=== PATIENT | male | born 1990 | race Caucasian/White ===

== ENCOUNTER 2022-03-23 15:30 | Emergency (ER) | payer MEDICARE, MEDICAID ==
[~2022-03-23] VITALS: Ht 180.3 cm; Wt 119.5 kg
[2022-03-23 15:36] VITALS: BP 130/81
[2022-03-23] MEDS ORDERED: LIDOcaine 1% 30ml preserv. free vial IJ STA (16:56)
[2022-03-23] MEDS ORDERED: sulfamethoxazole/trimethoprim DS (800/160mg) tablet PO ONE (17:00)
== END 2022-03-23 17:48 | disposition left against medical advice (07) ==
LOC: ER 15:31
DX: L60.0 Ingrowing nail (principal); L03.031 Cellulitis of right toe
CPT/HCPCS: 99281; 99282

== ENCOUNTER 2022-11-13 13:55 | Emergency (ER) | payer MEDICARE, MEDICAID ==
[~2022-11-13] VITALS: Ht 180.3 cm; Wt 104.0 kg
[2022-11-13 14:21] LABS: BASOPHILS # (AUTO) 0.1 X10'3 (0-0.2); BASOPHILS % (AUTO) 0.9 % (0-1); EOSINOPHILS # (AUTO) 0.2 X10'3 (0-0.9); EOSINOPHILS % (AUTO) 1.7 % (0-6); HEMATOCRIT 42.7 % (42.0-52.0); HEMOGLOBIN 14.8 g/dl (14.0-17.9); LYMPHOCYTES # (AUTO) 2.8 X10'3 (1.1-4.8); LYMPHOCYTES % (AUTO) 27.5 % (21-51); MEAN CORPUSCULAR HEMOGLOBIN 29.5 PG (27.0-31.0); MEAN CORPUSCULAR HGB CONC 34.8 g/dL (33.0-36.5); MEAN CORPUSCULAR VOLUME 84.7 FL (78-98); MEAN PLATELET VOLUME 8.2 FL (7.4-10.4); MONOCYTES # (AUTO) 0.8 X10'3 (0-0.9); MONOCYTES % (AUTO) 7.9 % (2-12); NEUTROPHILS # (AUTO) 6.2 X10'3 (1.8-7.7); PLATELET COUNT 210 X10'3 (140-440); RED BLOOD COUNT 5.04 X10'6 (4.70-6.10); RED CELL DISTRIBUTION WIDTH 13.6 % (11.5-14.5); WHITE BLOOD COUNT 10.1 X10'3 (4.5-11.0)
[2022-11-13 14:42] LABS: ALANINE AMINOTRANSFERASE 76 U/L (12-78); ALBUMIN 4.3 G/DL (3.4-5.0); ALBUMIN/GLOBULIN RATIO 1.1 (1.1-1.5); ALKALINE PHOSPHATASE 103 IU/L (46-116); ANION GAP 6 (8-16); ASPARTATE AMINO TRANSFERASE 28 U/L (10-37); BILIRUBIN,TOTAL 0.4 MG/DL (0.1-1.0); BLOOD UREA NITROGEN 10 MG/DL (7-18); BUN/CREATININE RATIO 10.2 (5.4-32.0); CALCIUM 9.4 MG/DL (8.5-10.1); CHLORIDE 106 MMOL/L (99-107); CREATININE 0.98 MG/DL (0.60-1.10); GLUCOSE 123 MG/DL (70-104); POTASSIUM 3.6 MMOL/L (3.5-5.1); SODIUM 140 MMOL/L (135-145); TOTAL CARBON DIOXIDE 28.3 MMOL/L (24-32); TOTAL PROTEIN 8.1 G/DL (6.4-8.2); eGFR 88 ML/MIN
[2022-11-13 14:48] LABS: MAGNESIUM 2.2 MG/DL (1.5-2.4)
--- NOTE | 2022-11-13 18:49 | NUR ---
Patient skin signs WNL. Skin is pink, warm, dry. Menation GCS 15. Patient appears in no acute distress.
[2022-11-13 20:43] VITALS: BP 123/70
== END 2022-11-13 20:46 | disposition home or self-care (01) ==
LOC: ER 13:55
DX: R07.9 Chest pain, unspecified (principal); R20.0 Anesthesia of skin
CPT/HCPCS: 36415; 80053; 83735; 83880; 84484; 85025; 93005; 99285

== ENCOUNTER 2025-05-16 11:09 | Emergency (ER) | payer MEDICARE, MEDICAID ==
[~2025-05-16] VITALS: Ht 180.3 cm; Wt 114.7 kg
[2025-05-16 11:13] VITALS: BP 148/88; PULSE 85; RESP 16; TEMP 97.7; O2SAT 98
[2025-05-16] MEDS ORDERED: SULF1TAB45 PO (12:37)
--- NOTE | 2025-05-16 12:39 | Physician Documentation ---
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 He has two small sores in the top of his has not fevers or nausea vomit Tetanus witin 5 years: Yes Medication Reconciliation Allergies: Coded Allergies: No Known Allergies (Unverified , 03/23/22) Past Medical History Past Medical History: No Pertinent History Past Surgical History: orthopedic surgeries Smoking Status: Never smoker Drug Use: none Lives In: Home Review of Systems All Other Systems at this time: Reviewed and Negative ROS As stated above in the HPI, otherwise all systems are reviewed and negative. Physical Exam Vital Signs: Temperature: 97.7, Source: Oral, Heart Rate: 85, Respiratory Rate: 16, BP: 148/88, Pulse Oximetry: 98, Weight: 114.700 Oxygen Flow Rate: 0 Physical Exam General: Alert, no apparent distress. HEENT: PERRL, EOMI, no injection, moist mucous membranes. Extremities: Normal range of motion, no deformity. Notable erythema with two 1 cm ulcerations in the superior aspect of the left, no fluctuance Neurologic: Oriented x4. Psychiatric: Normal mood and affect. Skin: Normal color, warm and dry. No edema, no ecchymosis. Progress Results/Orders Results/Orders Vital Signs 05/16/25 11:13 Temp 97.7 Pulse 85 Resp 16 B/P (MAP) 148/88 Pulse Ox 98 O2 Flow Rate 0 Medical Decision Making Findings Treat this patient for cellulitis via Bactrim for better coverage. See any reas on to pursue any I and D as I could not find any fluctuant mass Foot Diff Dx:Considerations: Include: Abrasion, Arthritis, Cellulitis, Contusion, Dislocation, DJD, Fracture-metatarsal, Fracture-phalynx, Fracture- tarsal, Gout, Hematoma, Ingrown toenail, Laceration, Malunion, Neurovascular injury, Open fracture, Paronychia, Puncture, Rheumatoid, Sprain, Septic, Subungual hematoma, Ulcer, Other Departure Disposition: 01 HOME / SELF CARE / HOMELESS Impression: Primary Impression: Cellulitis Condition: Stable Discharge Instructions: Cellulitis Referrals: NO PRIMARY CARE PROVIDER (PCP) Prescriptions Sulfamethoxazole/Trimethoprim (Septra Ds Tab) 800 Mg/160 Mg Tablet 1 TAB PO Q12H for 10 Days, #20 TAB Prov: LOGAN MORAN LAUNCH CHECK OUT 05/16/25 Signature Scribe Signature: g Attestation: Scribed for Logan Moran Director Risk by Logan Moran - KAREN . 05/16/25 12:37 LOGAN MORAN NP May 16, 2025 12:39
[2025-05-16] MEDS: sulfamethoxazole/trimethoprim DS (800/160mg) tablet PO ONE (12:53)
[2025-05-17] MEDS ORDERED: CLIN150C2 PO (03:35)
[2025-05-17] MEDS ORDERED: CLOT30CR24 TOP (03:35)
== END 2025-05-16 12:54 | disposition home or self-care (01) ==
LOC: ER 11:11
DX: L03.115 Cellulitis of right lower limb (principal)
CPT/HCPCS: 99283

== ENCOUNTER 2025-05-17 03:03 | Emergency (ER) | payer MEDICARE, MEDICAID ==
[~2025-05-17] VITALS: Ht 180.3 cm; Wt 115.8 kg
[~2025-05-17 03:03] MED LIST: SULF1TAB45 PO
--- NOTE | 2025-05-17 03:22 | Physician Documentation ---
History of Present Illness ~ Chief Complaint: Allergic Reaction Stated Complaint: ALLERGIC REACTION Time Seen by MD: 03:21 Primary Medical Doctor: unknown HPI Patient presents to the emergency room with skin irritation and blistering to his penis. He just started taking Bactrim yesterday and feels this is an adverse reaction to this. Taking Bactrim from cellulitis of his right foot. No prior instances. No recent new sexual partners Medication Reconciliation Allergies: Coded Allergies: sulfamethoxazole (Verified Allergy, Intermediate, ITCHYNESS, BURNING, SWELLING, 05/17/25) trimethoprim (Verified Allergy, Intermediate, ITCHYNESS, BURNING, SWELLING, 05/17/25) Scheduled Sulfamethoxazole/Trimethoprim (Septra Ds Tab), 1 TAB PO Q12H Past Medical History Past Medical History: No Pertinent History Past Surgical History: orthopedic surgeries Drug Use: none Lives In: Home Review of Systems ROS All review of systems negative except as per HPI Physical Exam Vital Signs: Temperature: 98.4, Source: Oral, Heart Rate: 87, Respiratory Rate: 16, BP: 132/88, Pulse Oximetry: 98, Weight: 115.820 Oxygen Flow Rate: 0 Physical Exam General: Patient is awake, alert, oriented x4 in no acute distress and well appearing.~ Head: Normocephalic and atraumatic. Eyes: Conjunctival normal. EOMI. PERRL. ENT: Mucous membranes moist. Neck: Supple, trachea is midline. Chest: Clear to auscultation bilaterally without rales, rhonchi, or wheezes. There is no accessory muscle use or retractions. Cardiac: RRR without murmurs, gallops, or rubs. : Erythema and weeping to patient's foreskin with associated swelling. No discharge Progress Results/Orders Results/Orders Vital Signs 05/17/25 05/17/25 03:12 03:25 Temp 98.4 Pulse 87 Resp 16 16 B/P (MAP) 132/88 Pulse Ox 98 O2 Flow Rate 0 Medical Decision Making Findings Patient presents to the emergency room with lesion to his penis. Differentials include but are not limited to herpes, fungal infection, adverse medication reaction. Symptoms very suspicious for herpes virus although he states he has not had any new sexual partners in years. I do not believe patient is suffering from TENS/Bean Roshan syndrome given time of onset after beginning the medication just yesterday and furthermore that has no other signs of systemic reaction other than the foreskin of his penis. Possible fungal infection we will treat for this. He is not willing to consider herpes Departure Disposition: 01 HOME / SELF CARE / HOMELESS Impression: Primary Impression: Lesion of penis Condition: Stable Discharge Instructions: Genital Yeast Infection, Male Referrals: NO PRIMARY CARE PROVIDER (PCP) Prescriptions Clindamycin (Cleocin ) 150 Mg Capsule 1 CAP PO Q8H for 10 Days, #30 CAP Prov: DANILO GUERRERO MD 05/17/25 Clotrimazole (Clotrimazole) 1 % Cream..g. 1 APPLIC TOP Q12H for 7 Days, #30 GM 0 Refills apply to affected area(s) Prov: DANILO GUERRERO MD 05/17/25 Education Educated: Patient Educated regarding: diagnosis, treatment, need for follow up Signature Scribe Signature: No scribe Attestation: The note accurately reflects work and decisions made by me.Danilo Guerrero MD 05/17/25 03:36 DANILO GUERRERO MD May 17, 2025 03:22
[2025-05-17] MEDS ORDERED: CLOT30CR24 TOP (03:35)
[2025-05-17] MEDS ORDERED: CLIN150C2 PO (03:35)
[2025-05-17 03:49] VITALS: BP 124/80; PULSE 68; RESP 16; TEMP 97.8; O2SAT 99
== END 2025-05-17 03:55 | disposition home or self-care (01) ==
LOC: ER 03:03
DX: N48.89 Other specified disorders of penis (principal); Z88.1 Allergy status to other antibiotic agents; Z88.2 Allergy status to sulfonamides
CPT/HCPCS: 99283

== ENCOUNTER 2025-05-21 21:53 | Emergency (ER) | payer MEDICARE, MEDICAID ==
[~2025-05-21] VITALS: Ht 180.3 cm; Wt 78.0 kg
[~2025-05-21 21:53] MED LIST changes: +CLIN150C2 PO; +CLOT30CR24 TOP
--- NOTE | 2025-05-22 00:08 | Physician Documentation ---
History of Present Illness ~ Chief Complaint: Abscess Stated Complaint: FOOT ABCESS Time Seen by MD: 23:55 OK to notify your PCP?: Yes Primary Medical Doctor: unknown Source: patient Mode of Arrival: POV Exam Limitations: no limitations HPI Mr. Arguello is a 35 y/o male who presents to the ED for evaluation of a wound to the dorsum of his right foot. He was seen here twice before for the wound to the right foot. He was initially started on Bactrim but report that he had a reaction to it so was seen here again on the and changed to Clindamycin. He noticed drainage from the wound earlier tonight and this is what made him seek care here in the ED. He denies fever/chills or repeat injury. He is taking the antibiotics as prescribed and occasionally takes Aleve. Tetanus Within 5 Years: Yes Medication Reconciliation Allergies: Coded Allergies: sulfamethoxazole (Verified Allergy, Intermediate, ITCHYNESS, BURNING, SWELLING, 05/21/25) trimethoprim (Verified Allergy, Intermediate, ITCHYNESS, BURNING, SWELLING, 05/21/25) Scheduled Clindamycin (Cleocin ), 1 CAP PO Q8H Clotrimazole (Clotrimazole), 1 APPLIC TOP Q12H Sulfamethoxazole/Trimethoprim (Septra Ds Tab), 1 TAB PO Q12H Past Medical History Past Medical History: No Pertinent History Past Surgical History: orthopedic surgeries Smoking Status: Current every day smoker Drug Use: none Lives In: Home Review of Systems All Other Systems at this time: Reviewed and Negative Musculoskeletal Wound to dorsum of right foot. Physical Exam Vital Signs: RN Vital Signs have been reviewed: Yes, Temperature: 98.6, Source: Temporal, Heart Rate: 108, Respiratory Rate: 18, BP: 138/98, Pulse Oximetry: 97, Weight: 78.000 Oxygen Flow Rate: 0 General Appearance: alert, WD/WN, no apparent distress EENT: normal ENT inspection Neck: normal inspection Cardiovascular: regular rate, rhythm Respiratory: lungs clear Chest: no accessory muscle use Skin Wound to dorsum of right foot. Minimal cellulitis noted. Does not track up the leg. No large fluid collection noted. Neurologic: oriented x4 Progress Results/Orders Results/Orders Vital Signs 05/21/25 05/21/25 22:08 23:25 Temp 98.6 Pulse 100 108 Resp 15 18 B/P (MAP) 141/93 138/98 (111) Pulse Ox 98 97 O2 Flow Rate 0 Medical Decision Making Differential Dx:Considerations: Include: Abscess, Bacteremia, Cellulitis, Gas gangrene, Osteromyelitis, Septicemia Additional Comment While here in the ED, he remained hemodynamically normal with ABC's intact and in NAD. He is afebrile and nontoxic. Wound evaluated and there is no large fluid collection requiring draining. No cellulitis tracking up the leg. I was unable to express any purulent fluid from the wound. Instructed to take his Aleve and given a dose of Ketorolac here in the ED. He is safe for d/c home with outpatient instructions and to continue taking his antibiotics as previously prescribed. Given follow-up and return instructions. He voiced un derstanding and agreement with d/c instructions. Departure Disposition: 01 HOME / SELF CARE / HOMELESS Impression: Primary Impression: Cellulitis Condition: Improved Discharge Instructions: Cellulitis, Adult, [id number] Referrals: NO PRIMARY CARE PROVIDER (PCP) Education Educated: Patient Educated regarding: diagnosis, treatment Signature Scribe Signature: N/A Attestation: N/A LATIA WEBB MD May 22, 2025 00:08
[2025-05-22] MEDS: ketorolac trometh 15mg/ml vial 15 MG/ML ML IM ONE (00:23)
[2025-05-22 00:29] VITALS: BP 126/93; PULSE 97; RESP 16; TEMP 98.6; O2SAT 100
== END 2025-05-22 00:32 | disposition home or self-care (01) ==
LOC: ER 21:54
DX: L03.115 Cellulitis of right lower limb (principal); F17.200 Nicotine dependence, unspecified, uncomplicated; Z88.1 Allergy status to other antibiotic agents; Z88.2 Allergy status to sulfonamides
CPT/HCPCS: 96372; 99283; J1885

== ENCOUNTER 2025-07-11 20:07 | Emergency (ER) | payer MEDICARE, MEDICAID ==
[~2025-07-11] VITALS: Ht 180.3 cm; Wt 120.3 kg
[~2025-07-11 20:07] MED LIST changes: -CLIN150C2 PO; -SULF1TAB45 PO
[2025-07-11 20:10] VITALS: BP 138/92; TEMP 97.8; O2SAT 99
[2025-07-11] MEDS ORDERED: DOXY100C43 PO (21:41)
--- NOTE | 2025-07-11 21:41 | Physician Documentation ---
History of Present Illness ~ Chief Complaint: Abscess Stated Complaint: R ARM PAIN Time Seen by MD: 20:19 Primary Medical Doctor: unknown HPI [age] year male presents to the emergency department with a right forearm while other surface abscess that he reports has been present for 4-5 days he had just opened on its own. It has a proximally 2 cm x 2 cm with surrounding celso thema. There is mild purulent discharge noted. He is grossly neurologically intact to his distal extremity. Tetanus Within 5 Years: Yes Medication Reconciliation Allergies: Coded Allergies: sulfamethoxazole (Verified Allergy, Intermediate, ITCHYNESS, BURNING, SWELLING, 05/21/25) trimethoprim (Verified Allergy, Intermediate, ITCHYNESS, BURNING, SWELLING, 05/21/25) Scheduled Clotrimazole (Clotrimazole), 1 APPLIC TOP Q12H Doxycycline Monohydrate (Doxycycline Monohydrate), 100 MG PO BID Past Medical History Past Medical History: No Pertinent History Past Surgical History: orthopedic surgeries Drug Use: none Lives In: Home Review of Systems All Other Systems at this time: Reviewed and Negative Constitutional: Reports: see HPI Musculoskeletal: Reports: see HPI Integumentary: Reports: see HPI Physical Exam Vital Signs: RN Vital Signs have been reviewed: Yes, Temperature: 97.8, Source: Oral, Heart Rate: 74, Respiratory Rate: 16, BP: 138/92, Pulse Oximetry: 99, Weight: 120.300 Oxygen Flow Rate: 0 General Appearance: alert, WD/WN, mild distress EENT: normal ENT inspection Neck: normal inspection Cardiovascular: regular rate, rhythm Respiratory: no respiratory distress Chest: no accessory muscle use Back: normal inspection Skin: other (2 x 2 cm raised fluctuant abscess to the mid right volar surface of the forearm. Surrounding erythema) Neurologic: oriented x4 Lymphatic: normal inspection Psychiatric: normal mood/affect Progress Results/Orders Results/Orders Completed Orders - GERMAIN RAMOS Doxycycline 100mg Capsule (Vibramycin 10 (07/11/25 21:31) Lidocaine 1% 30ml Vial (Xylocaine 1% Via (07/11/25 21:45) Medications Received in ER Medications (Trade) Dose Ordered Sig/Evan Route PRN Reason Start Time Stop Time Status Last Admin Dose Admin (VIBRAMYCIN 100mg capsule) 100 mg ONCE STAT PO 07/11/25 21:31 07/11/25 21:36 DC 07/11/25 22:06 100 MG (Xylocaine 1% vial) ONCE STAT SQ 07/11/25 21:45 07/11/25 21:47 DC 07/11/25 22:06 5 ML Vital Signs 07/11/25 20:10 Temp 97.8 Pulse 74 Resp 16 B/P (MAP) 138/92 Pulse Ox 99 O2 Flow Rate 0 Medical Decision Making Additional information obtaine: N/A Findings Examination and history consistent with abscess requiring incision and drainage. Reassuring no lymphangitis present. First dose antibiotic provided the patient. Wound care and outpatient follow up provided for patient. Differential Dx:Considerations: Include: Abscess, Bacteremia, Cellulitis Departure Disposition: HOME / SELF CARE / HOMELESS Impression: Primary Impression: Abscess Additional Impression: Abscess of forearm, right Condition: Improved Discharge Instructions: Incision and Drainage, Cellulitis, Adult, [id number] Additional Instructions: Tonight in the emergency department you received an incision and drainage to your right forearm. Please begin antibiotics as directed and have wound re- evaluated in three days for removal of packing. Please return in the interim if worse. Thank you for choosing [facility]. Referrals: NO PRIMARY CARE PROVIDER (PCP) Prescriptions Doxycycline Monohydrate (Doxycycline Monohydrate) 100 Mg Capsule 100 MG PO BID, #14 CAP may sub doxycycline hyclate or azithromycin z-pack as prescribed Prov: GERMAIN RAMOS 07/11/25 Clotrimazole (Clotrimazole) 1 % Cream..g. 1 APPLIC TOP Q12H for 7 Days, #30 GM 0 Refills apply to affected area(s) Prov: GERMAIN RAMOS 07/11/25 Education Educated: Patient Educated regarding: diagnosis, treatment, prognosis, need for follow up Signature Scribe Signature: . Attestation: . GERMAIN RAMOS Jul 11, 2025 21:41
[2025-07-11] MEDS: DOXYCYCLINE 100MG CAPSULE PO STA (22:06)
[2025-07-11] MEDS: LIDOcaine 1% 30ml preserv. free vial SQ STA (22:06)
[2025-07-11 22:16] VITALS: PULSE 82; RESP 16
[2025-07-11] MEDS ORDERED: CLOT30CR24 TOP (22:16)
== END 2025-07-11 22:16 | disposition home or self-care (01) ==
LOC: ER 20:08
DX: L02.413 Cutaneous abscess of right upper limb (principal); Z88.2 Allergy status to sulfonamides; Z88.8 Allergy status to other drugs, medicaments and biological substances; Z98.890 Other specified postprocedural states
CPT/HCPCS: 10060; 99283; A6407; J2003; Z7610; 26010